=== PATIENT | female | born 1990 | race African-American/Black ===

== ENCOUNTER 2023-01-21 18:46 | Emergency (ER) | payer MEDICAID ==
[~2023-01-21] VITALS: Ht 167.6 cm; Wt 82.0 kg
[2023-01-21 18:55] VITALS: BP 163/98; PULSE 82; RESP 18; TEMP 98.4; O2SAT 100
[2023-01-21] MEDS ORDERED: LIDOCAINE HCL/PF 1% 10 MG/ML 5ML VIAL INFIL ONE (20:45)
== END 2023-01-21 21:42 | disposition home or self-care (01) ==
LOC: ER 18:46
DX: M20.021 Boutonniere deformity of right finger(s) (principal); I10 Essential (primary) hypertension
CPT/HCPCS: 73140; 99283; J3490; Z7610